=== PATIENT | female | born 1950 | race Caucasian/White ===

== ENCOUNTER 2018-02-01 13:38 | Day surgery (SDC) | payer MEDICARE ==
[2018-02-01] MEDS ORDERED: LIDOCAINE 2% MDV (20MG/ML) 20ML VIAL IV ONE (13:39)
[2018-02-01] MEDS ORDERED: PROPOFOL 10 MG/ML VIAL IV ONE (13:39)
--- NOTE | 2018-02-02 13:30 | Operative Note ---
DATE OF SURGERY: 02/01/2018 OPERATION: COLONOSCOPY with cold snare polypectomy x2. PREOPERATIVE DIAGNOSIS: History of large adenomatous polyp. POSTOPERATIVE DIAGNOSIS: Colon polyps and mild sigmoid diverticulosis. PROCEDURE: After informed consent was obtained from the patient, she was placed in the left lateral decubitus position in the endoscopy suite, sedated and monitored by the department of anesthesia. Digital rectal exam was unremarkable. A well-lubricated [id number] colonoscope was inserted into the rectum and advanced to the cecum. Preparation quality was good to excellent. The cecum was unremarkable. The ascending colon revealed a 4 mm sessile polyp removed with a cold snare with minimal bleeding noted. The polyp was retrieved without difficulty. The transverse colon also revealed a sessile polyp approximately 4-5 mm in diameter removed with a cold snare with minimal bleeding noted. The polyp was retrieved as well. In the distal transverse colon, there was noted to be previous ink. No residual polyp was seen at the site. Despite multiple attempts at visualization, I could not see any other polyp tissue. The endoscope was then retracted through the descending colon which was unremarkable. The sigmoid colon demonstrated scattered diverticula. No polyps or inflammation was seen. The rectum was unremarkable in forward and in J-turn views. The endoscope was straightened, the rectal ampulla deflated, and the endoscope was removed. RECOMMENDATIONS: The patient should follow a high-fiber diet. She will require repeat exam in 3-5 years, most likely 5 years based on tissue histology. As always, thank you for allowing me to participate in the healthcare of your patients. CC: Dr. Destiny KIMBALL
== END 2018-02-01 14:53 | disposition home or self-care (01) ==
LOC: HOP 13:38
PROVIDERS: ATTEND Internal Medicine Gastroenterology
DX: Z12.11 Encounter for screening for malignant neoplasm of colon (principal); Z86.010 Personal history of colon polyps; D12.2 Benign neoplasm of ascending colon; D12.3 Benign neoplasm of transverse colon; K57.30 Diverticulosis of large intestine without perforation or abscess without bleeding